=== PATIENT | female | born 1985 | race Caucasian/White ===

== ENCOUNTER 2024-05-21 13:01 | Emergency (ER) | payer BC, SELFPAY ==
[2024-05-21 13:05] LABS: Glucose - Point of Care 108 mg/dl (70-99)
[2024-05-21 13:07] VITALS: BP 132/89
[2024-05-21 13:34] LABS: % Basophils 0.5 % (0-2); % Eosinophils 0.8 % (0-6); % Immature Granulocytes 0.4 % (0-0.5); % Lymphocytes 33.4 % (20.5-51.1); % Monocytes 8.2 % (1.7-9.3); % Neutrophils 56.7 % (42.2-75.2); Absolute Eosinophils 0.1 10^3/uL (0-0.7); Absolute Lymphocytes 2.5 10^3/uL (1.2-3.4); Absolute Monocytes 0.6 10^3/uL (0.1-0.6); Absolute Neutrophils 4.2 10^3/uL (1.4-6.5); Hematocrit 39.8 % (37.0-47.0); Hemoglobin 13.9 g/dL (12.0-16.0); Mean Corp Hgb Conc. 34.9 g/dL (33.0-37.0); Mean Corpuscular Hgb 32.3 pg (27.0-31.0); Mean Corpuscular Volume 92.3 fL (81.0-99.0); Mean Platelet Volume 10.4 fL (7.4-10.4); Nucleated Red Blood Cells % 0 %; Platelet Count 240 10^3/uL (130-400); Red Blood Cell Count 4.31 10^6/uL (4.20-5.40); Red Cell Dist. Width 12.5 % (11.5-14.5); White Blood Cell Count 7.4 10^3/uL (4.8-10.8)
[2024-05-21 13:42] LABS: HCG, Serum Qualitative Screen Negative
[2024-05-21 13:47] LABS: ALT (SGPT) 24 U/L (0-35); AST (SGOT) 23 U/L (14-36); Albumin 4.9 g/dl (3.5-5.0); Alkaline Phosphatase 70 U/L (38-126); Blood Urea Nitrogen 8 mg/dl (7-17); Calcium 9.8 mg/dl (8.4-10.2); Carbon Dioxide 23 mmol/L (22-30); Chloride 104 mmol/L (98-107); Estimated Creatinine Clearance 111 ml/min; Glucose 103 mg/dl (70-99); Potassium 3.9 mmol/L (3.5-5.1); Sodium 140 mmol/L (135-145); Total Bilirubin 0.6 mg/dl (0.2-1.3); Total Protein 7.7 g/dl (6.3-8.2); eGFR > 60.00
[2024-05-21 13:49] LABS: INR 0.99; PT 12.9 Sec (11.4-14.6)
[2024-05-21 13:50] LABS: APTT 26.9 Sec (23.4-35.0)
[2024-05-21 13:57] LABS: Troponin I < 0.012 ng/ml
[2024-05-21 14:16] LABS: TSH Reflex To Free T4 0.95 uIU/ml (0.47-4.68)
--- NOTE | 2024-05-21 14:23 | ED.GENMED ---
History of Present Illness
General
Chief Complaint: Visual Problem
Source: patient
Time Seen by Provider: 05/21/24 13:38
History of Present Illness
History of Present Illness:
This patient is a 38-year-old female presents emergency department after experiencing 'squiggly lines' in her visual field just prior to presentation. She works as a nurse here in the emergency department and was working when she noted a gradual
onset of this. The squiggly lines were also described as a 'kaleidoscope' also described as a 'distorted rainbow'. This did not change in covering each eye. She describes it as being in the 'focal point of my vision'. She denies associated other
symptoms such as headache, chest pain, dyspnea, numbness, nausea, vomiting, double vision, focal weakness, imbalance, or other complaints. Symptoms lasted about 10 to 20 minutes and then fully resolved. Patient is now asymptomatic
Past History
Past History
ED Past Medical History: Hypothyroidism
ED Past Surgical History: Gynecological (DNE, miscarriage)
Social History
Tobacco: Non-smoker
Alcohol: Occasional
Drug: None
Personal:
Living: with family
Employment: Employed
Phy Exam
Physical Exam
Physical Exam:
GENERAL: Alert , in no apparent distress
EYE: pupils equal and reactive, no nystagmus, EOMI, no photophobia
NECK: Supple, no significant adenopathy.
ENT: o/p clr, mmm.
CARDIAC: Regular rate and rhythm .
LUNGS: Clear breath sounds bilaterally, no acute respiratory distress, no wheezes/rales/rhonchi
ABDOMEN: Soft, without focal tenderness, no r/g, no cvat
NEUROLOGICAL: Alert and oriented, no focal neuro deficits, normal gait, motor 5 out of 5, sensory intact, 2 through 12 intact, [id number]
SKIN: Warm and dry, skin intact.
MUSCULOSKELETAL: No edema, well perfused.
PSYCH: Normal and appropriate interaction.
Course
Orders/Labs/Results
Orders:
Orders
05/21/24 13:18
Bedside Glucose- Treatment ONCE
Cardiac Monitoring- Treatment ONCE
IV Insert/Care/Rem.- Treatment PRN
Vital Signs As Directed
Frequency: Other
05/21/24 13:19
CT Head W/o Iv Contrast Urgent
Comment:
Reason For Exam: vision change
Test Result ONCE
05/21/24 13:22
Complete Blood Count/With Diff Urgent
Comprehensive Metabolic Panel Urgent
HCG, Serum Qualitative Screen Urgent
Comment: Notify provider if positive test present
PTT Urgent
Prothrombin Time Urgent
Thyroid Stimulating Hormone to Reflex [TSH Reflex To Free T4] Urgent
Troponin I Urgent
Abnormal Lab Results
05/21/24 05/21/24
13:04 13:22
MCH 32.3 H pg
(27.0-31.0)
Glucose 103 H mg/dl
(70-99)
POC Glucose 108 H mg/dl
(70-99)
05/21/24 13:22
05/21/24 13:22
Vital Signs
Initial and Last Documented VS:
Initial Vital Signs
Temp Pulse Resp BP Pulse Ox
98.4 F 96 21 132/89 98
05/21/24 13:07 05/21/24 13:07 05/21/24 13:07 05/21/24 13:07 05/21/24 13:07
Last Documented Vital Signs
Temp Pulse Resp BP Pulse Ox
98.4 F 96 21 132/89 98
05/21/24 13:07 05/21/24 13:07 05/21/24 13:07 05/21/24 13:07 05/21/24 13:07
*Critical Care Note
Total Time (30-74mins, 75-104mins- exclusive of procedures): Not Applicable
Update Note
Update Note:
Patient presents to the Emergency Department with _visual changes
Number and Complexity of Problems Addressed at the Encounter
� Chronic conditions affecting care:
� Acute Exacerbation and/or Progression of Chronic Illness:
� Differential Diagnosis includes: But not limited to retinal disease, stroke, migraine, etc.
Amount and/or Complexity of Data to be Reviewed and Analyzed
� I performed an independent evaluation of and my interpretation is:
EKG:
CT: Read by radiology NAD
Xrays:
Laboratory Studies: Unremarkable
Other:
� Review of other/old records reveals:
� Clinical information was obtained by an independent historian:
� Prescriptions/Medications Considered but not given:
� Further testing considered but not performed:
Risk of Complications and/or Morbidity or Mortality of Patient Management
� Social determinants of health affecting care:
� Discussion with other providers (PCP, Hospitalists, Consultants, etc):
� Escalation of care including admission/observation vs risk of discharge considered: Strongly suspect ocular migraine given history, completely normal physical exam, and unremarkable workup here. Case discussed with neurology,
Dr. Martinez who agrees. Recommends rizatriptan Rx to be used as needed. Patient remains asymptomatic nontoxic and well-appearing.
ED Attending Note
-
Portions of this chart may have been created with voice recognition software.� Occasional wrong word or��sound alike� substitutions may have occurred due to the inherent limitations of voice recognition software.
Discharge Plan
Departure
Patient Disposition: Home (Routine Discharge)
Date of Disposition: 05/21/24
Time of Disposition: 14:28
Patient with high blood pressure during this ER visit?: Yes
Condition: Good
Discharge Problem:
Ocular migraine
Instructions: Migraines (DC), BLOOD PRESSURE
Prescriptions:
New
rizatriptan 10 mg tablet,disintegrating
10 mg PO ONCE PRN (Reason: migraine headache) Qty: 20 0RF
No Action
levothyroxine [Synthroid] 50 mcg Tablet
50 mcg PO DAILY
1 tab PO DAILY
Vitamin D3
1 tab PO DAILY
Referrals:
Tate Anaya MD [Active] - Next open appointment
Inna Esteban MD [Family Provider] - Follow up in 2-3 days
Activity Restrictions/Additional Instructions:
IF YOU DEVELOP NUMBNESS, TINGLING, WEAKNESS, SEVERE HEADACHE, VOMITING, FEVER, VISUAL CHANGES, OR OTHER WORRISOME SIGNS, PLEASE RETURN TO THE ER IMMEDIATELY.
Interventions
Interventions:
*Risk Screen - Suicide Last Done: 05/21/24 13:07
*General Assessment Last Done: 05/21/24 13:07
*Neglect/Abuse Screening Last Done: 05/21/24 13:07
*ED COVID-19 Vaccine History Last Done: 05/21/24 13:07
ED- Neurological Assessment Last Done: 05/21/24 13:14
ED-EENT Assessment Last Done: 05/21/24 13:14
Discharge Date and Time
Print Language: BOLIVIAN
== END 2024-05-21 14:47 | disposition home or self-care (01) ==
LOC: EMR 13:01
PROVIDERS: Emergency Medicine; EMERGENCY PHYSICIAN Emergency Medicine; FAMILY PHYSICIAN Internal Medicine
DX: G43.109 Migraine with aura, not intractable, without status migrainosus (principal); R03.0 Elevated blood-pressure reading, without diagnosis of hypertension; E03.9 Hypothyroidism, unspecified
CPT/HCPCS: 99284; 70450; 80053; 82962; 84443; 84484; 84703; 85025; 85610; 85730